=== PATIENT | female | born 1995 | race Caucasian/White ===

== ENCOUNTER 2017-11-03 15:52 | Emergency (ER) | payer MEDICAID ==
[2017-11-03 16:08] VITALS: BP 113/77
--- NOTE | 2017-11-03 16:36 | EDM.PDOC ---
ED HPI GENERAL MEDICAL PROBLEM - General Chief Complaint: General Stated Complaint: PT WOULD LIKE TO GET NEXPLANON INPLANT REMOVED Time Seen by Provider: 11/03/17 16:30 Source of Information: Reports: Patient History Limitations: Reports: No Limitations - History of Present Illness INITIAL COMMENTS - FREE TEXT/NARRATIVE: HISTORY AND PHYSICAL: History of present illness: [Comes to the emergency room room requesting that her Nexplanon implant be removed from her left bicep area and she thinks that she is having adverse symptoms from her implant. She's had some nausea and occasional vomiting, fever and chills for the past several months which she is attributing to her implant. She notices a pinching feeling in her bicep which is causing numbness to her arm. She is unable to be seen by her PCP for the next several weeks.] Review of systems: As per history of present illness and below otherwise all systems reviewed and negative. Past medical history: As per history of present illness and as reviewed below otherwise noncontributory. Surgical history: As per history of present illness and as reviewed below otherwise noncontributory. Social history: No reported history of drug or alcohol abuse. Family history: As per history of present illness and as reviewed below otherwise noncontributory. Physical exam: HEENT: Atraumatic, normocephalic. Extremities: Left bicep appears atraumatic. One implant is palpated through her skin to her left inner bicep. Neurovascular unremarkable. Neuro: Awake, alert, oriented. Motor and sensory unremarkable throughout. Exam nonfocal. Impression: [Contraception] Plan: [Discussed with patient that contraceptive implants are not removed in the emergency room and that she needs to follow-up with the local [facility]. Apparently she has had an appointment for this but her insurance won't cover the cost of removal. Dr. Boone's office was contacted. Patient is advised to follow-up with Karina at Dr. Boone's office to discuss her options.] Definitive disposition and diagnosis as appropriate pending reevaluation and review of above. Left Upper Arm Pain Score (Numeric/FACES): 6 - Related Data Allergies Allergy/AdvReac Type Severity Reaction Status Date / Time Sulfa (Sulfonamide Allergy Rash Verified 11/03/17 16:08 Antibiotics) Home Meds: Home Meds Etonogestrel [Nexplanon] 1 dose TD ASDIRECTED 11/03/17 [History] Past Medical History - Past Health History Medical/Surgical History: Denies Medical/Surgical History - Infectious Disease History Infectious Disease History: Reports: Chicken Pox Social & Family History - Family History Family Medical History: Noncontributory - Tobacco Use Smoking Status *Q: Light Tobacco Smoker Years of Tobacco use: 1 Packs/Tins Daily: 0.1 Second Hand Smoke Exposure: Yes - Alcohol Use Days Per Week of Alcohol Use: 2 Number of Drinks Per Day: 4 Total Drinks Per Week: 8 - Recreational Drug Use Recreational Drug Use: No ED ROS GENERAL - Review of Systems Review Of Systems: ROS reveals no pertinent complaints other than HPI. ED EXAM, GENERAL - Physical Exam Exam: See Below Course - Vital Signs Last Recorded V/S: Last Vital Signs Temp 98.4 F 11/03/17 16:05 Pulse 90 11/03/17 16:05 Resp 16 11/03/17 16:05 BP 113/77 11/03/17 16:05 Pulse Ox 98 11/03/17 16:05 Departure - Departure Time of Disposition: 16:40 Disposition: DC[facility] 05 Condition: Good Clinical Impression: Nexplanon in place - Discharge Information Referrals: PCP,None [Primary Care Provider] - Forms: ED Department Discharge Additional Instructions: The following information is given to patients seen in the emergency department who are being discharged to home. This information is to outline your options for follow-up care. We provide all patients seen in our emergency department with a follow-up referral. The need for follow-up, as well as the timing and circumstances, are variable depending upon the specifics of your emergency department visit. If you don't have a primary care physician on staff, we will provide you with a referral. We always advise you to contact your personal physician following an emergency department visit to inform them of the circumstance of the visit and for follow-up with them and/or the need for any referrals to a consulting specialist. The emergency department will also refer you to a specialist when appropriate. This referral assures that you have the opportunity for follow-up care with a specialist. All of these measure are taken in an effort to provide you with optimal care, which includes your follow-up. Under all circumstances we always encourage you to contact your private physician who remains a resource for coordinating your care. When calling for follow-up care, please make the office aware that this follow-up is from your recent emergency room visit. If for any reason you are refused follow-up, please contact the [facility] emergency department at and asked to speak to the emergency department charge nurse. [facility] Primary care - Women's Health [address] [place] [id number] Follow-up with the clinic listed above to discuss options. Return to ER as needed as discussed.
== END 2017-11-03 16:55 | disposition home or self-care (01) ==
LOC: MW.ED 15:52
DX: R11.2 Nausea with vomiting, unspecified (principal); Z97.5 Presence of (intrauterine) contraceptive device; F17.210 Nicotine dependence, cigarettes, uncomplicated; Z88.2 Allergy status to sulfonamides
CPT/HCPCS: 99282